=== PATIENT | female | born 1960 | race Two or more races ===

== ENCOUNTER 2020-04-30 17:12 | Emergency (ER) | payer OTHER ==
[~2020-04-30] VITALS: Ht 165.1 cm; Wt 81.8 kg
[2020-04-30 17:13] VITALS: BP 121/60
== END 2020-04-30 18:10 | disposition home or self-care (01) ==
LOC: EMS 17:12
DX: Z03.818 Encounter for observation for suspected exposure to other biological agents ruled out (principal)
CPT/HCPCS: 99283; U0003